=== PATIENT | female | born 1950 | race Hispanic/Latino ===

== ENCOUNTER 2018-09-07 16:42 | Emergency (ER) | payer SELFPAY ==
[2018-09-07] MEDS ORDERED: Lidocaine 1% w/Epinephrine 1:100K 20 ML VIAL ONE (17:55)
[2018-09-07] MEDS ORDERED: HYDROcodone/Acetaminophen 10/325 mg Tablet ONE (18:23)
[2018-09-07 18:44] LABS: #Basophils 0.1 thou/uL (0.0-0.2); #Eosinphils 0.1 thou/uL (0.0-0.7); #Lymphocytes 2.8 thou/uL (1.20-3.40); #Monocytes 0.8 thou/uL (0.11-0.59); #Neutrophils 6.3 thou/uL (1.40-6.50); %Basophils 1.2 % (0.0-1.0); %Lymphocytes 27.4 % (21.0-51.0); %Monocytes 8.3 % (0.0-10.0); %Neutrophils 62.1 % (42.0-75.0); Hemoglobin 12.8 g/dL (12.0-16.0); Mean Corpuscular HGB CONC 31.2 g/dL (32.0-36.0); Mean Corpuscular Hemoglobin 27.1 pg (27.0-31.0); Mean Corpuscular Volume 86.8 fL (78.0-98.0); Mean Platelet Volume 11.4 fL (7.4-10.4); Platelet Count 145 thou/uL (130-400); RBC Distribution Width 12.2 % (11.5-14.5); Red Blood Cell (RBC) Count 4.74 mill/uL (4.20-5.40); White Blood Cell (WBC) Count 10.1 thou/uL (4.8-10.8)
--- NOTE | 2018-09-07 19:03 | CT ---
CT HEAD WITHOUT CONTRAST: Technique: Multiple axial tomograms were obtained through the head without IV enhancement. Indications: Fall with head injury. FINDINGS: There is a large scalp hematoma over the left frontal bone. No evidence of underlying skull fracture. Sinuses and mastoids are clear. The ventricles have normal size and position. There is mild cortical atrophy. 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 There is no evidence of intracranial hemorrhage. No evidence of mass or edema. No evidence of acute i nfarct. When compared to a prior head CT from 01-22-17, the right occipital lobe infarct has occurred since th at study. There are ischemic changes seen in the right periventricular white matter which were noted previously and appear stable. Ischemic changes in the right basal ganglia are also stable. IMPRESSION: Scalp hematoma over the left frontal bone. No acute intracranial hemorrhage or injury. There are manager heavy equipment sofía changes as described. POS: [facility]
[2018-09-07] MEDS ORDERED: Bacitracin Zinc 1 Packet ONE (19:08)
[2018-09-07 19:09] LABS: ALT (SGPT) 8 U/L (8-55); AST (SGOT) 15 U/L (5-34); Albumin 4.2 g/dL (3.4-4.8); Alkaline Phosphatase 99 U/L (40-150); Anion Gap 16 mmol/L (10-20); BUN (Urea Nitrogen) 24 mg/dL (9.8-20.1); Bilirubin, Total 0.3 mg/dL (0.2-1.2); Calc. Creatinine Clearance 0 mL/min (70-130); Calcium 9.7 mg/dL (7.8-10.44); Carbon Dioxide 23 mmol/L (23-31); Chloride 101 mmol/L (98-107); Estimated GFR-MDRD 60; Globulin 3.9 g/dL (2.4-3.5); Glucose 184 mg/dL (80-115); Potassium 4.5 mmol/L (3.5-5.1); Protein, Total 8.1 g/dL (6.0-8.3); Sodium 135 mmol/L (136-145); Valproic Acid (Depakene) 79.1 ug/mL (50.0-100.0)
== END 2018-09-07 19:40 | disposition home or self-care (01) ==
LOC: ERS 16:42
DX: S06.9X9A Unspecified intracranial injury with loss of consciousness of unspecified duration, initial encounter (principal); S01.112A Laceration without foreign body of left eyelid and periocular area, initial encounter; G40.909 Epilepsy, unspecified, not intractable, without status epilepticus; E11.9 Type 2 diabetes mellitus without complications; W19.XXXA Unspecified fall, initial encounter
CPT/HCPCS: 12011; 36415; 70450; 80053; 80164; 82140; 84146; 85025; J2001

== ENCOUNTER 2020-01-10 12:09 | Inpatient (IN) | payer OTHER, SELFPAY ==
[~2020-01-10 12:09] MED LIST: Iopamidol-370 76% 500 ML 1 ML ONE
[2020-01-10] MEDS ORDERED: Morphine 2 MG/ML SYRINGE ONE (12:43)
[2020-01-10] MEDS ORDERED: Ondansetron PF 4 MG/2 ML Vial ONE (12:43)
--- NOTE | 2020-01-10 13:27 | RAD ---
EXAM: Single view of the chest HISTORY: Hypoglycemia and weakness COMPARISON: 11/28/2013 FINDINGS: Single view of the chest shows a normal sized cardiomediastinal silhouette. There is no uriel dence of consolidation, mass, or pleural effusion. Degenerative changes are seen in the spine. IMPRESSION: No evidence of acute cardiopulmonary disease
[2020-01-10 13:28] LABS: Hemoglobin 12.2 g/dL (12.0-16.0); Mean Corpuscular HGB CONC 32.8 g/dL (32.0-36.0); Mean Corpuscular Hemoglobin 28.2 pg (27.0-31.0); Mean Corpuscular Volume 85.7 fL (78.0-98.0); Mean Platelet Volume 11.4 fL (7.4-10.4); Platelet Count 145 thou/uL (130-400); Red Blood Cell (RBC) Count 4.33 mill/uL (4.20-5.40); White Blood Cell (WBC) Count 20.6 thou/uL (4.8-10.8)
[2020-01-10 13:48] LABS: ALT (SGPT) 8 U/L (8-55); AST (SGOT) 16 U/L (5-34); Albumin 4.2 g/dL (3.4-4.8); Alkaline Phosphatase 93 U/L (40-110); Anion Gap 15 mmol/L (10-20); BUN (Urea Nitrogen) 29 mg/dL (9.8-20.1); Band 16 % (5-11); Bilirubin, Total 0.4 mg/dL (0.2-1.2); Calc. Creatinine Clearance 0 mL/min (70-130); Calcium 9.6 mg/dL (7.8-10.44); Carbon Dioxide 22 mmol/L (23-31); Chloride 102 mmol/L (98-107); Estimated GFR-MDRD 53; Globulin 3.8 g/dL (2.4-3.5); Glucose 190 mg/dL (80-115); Lipase 9 U/L (8-78); Lymphocytes 5 % (21-51); MDiff Complete? YES; Monocytes 2 % (0-10); Myelocyte 1 % (0-0); Neutrophil 76 % (42-75); Platelet Morphology Comment Appears Adequate; RBC Morphology Normal; Sodium 135 mmol/L (136-145); Vacuoles SLIGHT
[2020-01-10 14:12] LABS: CKMB 5.7 ng/mL (0-6.6)
[2020-01-10] MEDS ORDERED: Vancomycin HCl 1.25 GM in Sodium Chloride 0.9% 250 ML 250 ML IVPB SCH (15:00)
--- NOTE | 2020-01-10 15:08 | CT ---
CT ABDOMEN AND PELVIS WITH IV CONTRAST 01/10/2020 CLINICAL INFORMATION: Post fall. Weakness. Abdominal pain after fall. Recent exposure to Covid patient. COMPARISON: None. Technique: Multiple contiguous axial CT images are obtained through the abdomen and pelvis with IV contrast. Cor onal reformatted images are provided. FINDINGS: Lower Chest: Mild volume loss is present at each lung base. There is mild prominence of the jacobsen of the lower esophagus, but this may be secondary to contraction of the lower esophagus. No discrete mass is appreciated. Vessels: Vascular calcifications are seen in the abdominal aorta and in the iliac arteries. Abdomen: Portal vein:Patent Gallbladder: Within normal limits for CT imaging. Liver: Calcified granuloma is present in the right hepatic lobe. Liver otherwise has a normal CT appe arance. Spleen: within normal limits. Pancreas: within normal limits. Adrenals: within normal limits. Kidneys: Subcentimeter low-density focus is seen in the inferior pole right kidney. Kidneys otherwise demonstrate a normal CT appearance bilaterally. Bowel: Normal caliber. Appendix: The appendix is visualized and normal in caliber. Peritoneum: No ascites or free air; no fluid collection. Mesentery and Retroperitoneum: No enlarged mesenteric or retroperitoneal lymph nodes. Abdominal Wall: Mild stranding is seen in the adipose layer lower abdomen/upper pelvis with could be related to scarring or possibly secondary to recent injections. Pelvis: Reproductive Organs: Calcifications are seen in the uterus likely due to vascular type calcifications . Pelvis within normal limits. Bladder: within normal limits. Bones: There is a mild wedge-shaped compression fracture of the T9 vertebral body and to a much lesse r extent T11 vertebral body suggesting mild compression fractures of indeterminate age. Degenerative changes are seen in the spine. IMPRESSION: 1. Indeterminate age compression fractures involving the T9 and T11 vertebral bodies. 2. No acute findings are seen in the abdomen or pelvis. 3. Vascular calcifications.
[2020-01-10] MEDS ORDERED: cefTRIAXone\\ROCEPHIN 2 GM VIAL ONE (15:26)
[2020-01-10] MEDS ORDERED: Cefepime 2 GM VIAL ONE (15:28)
[2020-01-10 15:51] LABS: Bacteria/HPF None Seen HPF (None Seen); Bilirubin Negative (Negative); Blood, Urine Trace (Negative); Clarity Clear (Clear); Glucose, Urine (Dipstick) >=1000 mg/dL (Negative); Leukocyte Negative Leu/uL (Negative); Nitrite Negative (Negative); Protein, Urine (Dipstick) Negative (Neg-Trace); RBC/HPF 0-3 HPF (0-3); Squamous Epithelial 0-3 HPF (0-3); Urobilinogen Normal mg/dL (Less than 2); WBC/HPF 0-3 HPF (0-3)
[2020-01-10 16:51] LABS: Lactic Acid 2.3 mmol/L (0.5-2.2)
[2020-01-10 19:04] LABS: Troponin I 0.018 ng/mL (< 0.028)
[2020-01-10] MEDS ORDERED: Dextrose 50% Abboject 50 ML SYRINGE SLOW IVP PRN (21:02)
[2020-01-10] MEDS ORDERED: Acetaminophen 325 MG TAB PO PRN (21:02)
[2020-01-10] MEDS ORDERED: Acetaminophen 650 MG Suppository PR PRN (21:02)
[2020-01-10] MEDS ORDERED: Ondansetron ODT 4 MG TAB PO PRN (21:02)
[2020-01-10] MEDS ORDERED: Dextrose 5% in Water 1,000 ML IV PRN (21:02)
[2020-01-10] MEDS ORDERED: HYDROcodone/Acetaminophen 5/325 mg Tablet PO PRN ×2 (21:02)
--- NOTE | 2020-01-10 21:30 | PDOC.HHP ---
Hospitalist HPI - History of Present Illness generalize weakness History of Present Illness: Case of an 69y/o female with pmhx of dm htn and epilepsy who comes to hospital after family members found her on the floor sweating and shaking. patient refers that for the last couple of days she has been having generalize weakness , general malaise, headache chills and some cough which is not productive. family members refers that they took patient to pcp who saw her and sent her to hospital. at the ED patient was found on sepsis on unknown source and hospitalist was called for further management and evaluation. patient denies dysuria diarrha vomiting Hospitalist ROS - Review of Systems All other systems reviewed; all pertinent +/- noted in HPI/Subj Hospitalist History - Past Medical History Source: patient, family Cardiac: reports: HTN Endocrine: reports: Diabetes Other Medical History: epilsy - Family History Family History: reports: diabetes mellitus - Social History Smoking Status: Never smoker Alcohol: reports: None Drugs: reports: none Living Situation: With Family Activity level: independent ambulation - Exam General Appearance: NAD, awake alert Eye: PERRL, anicteric sclera ENT: normocephalic atraumatic, no oropharyngeal lesions Neck: supple, symmetric, no JVD, no thyromegaly Heart: RRR, no murmur, no gallops Respiratory: CTAB, no wheezes, no rales Gastrointestinal: soft, non-tender, non-distended, normal bowel sounds Extremities: no cyanosis, no clubbing, no edema Skin: normal turgor, no lesions, no rashes Neurological: cranial nerve grossly intact, normal sensation to touch, no focal deficits, no new deficit Musculoskeletal: normal tone, normal strength, no muscle wasting Psychiatric: normal affect, normal behavior, A&O x 3 Hospitalist Results - Labs Result Diagrams: 01/10/20 22:23 01/10/20 13:15 Lab results: WBC 20.6 thou/uL (4.8-10.8) H 01/10/20 13:15 Hgb 12.2 g/dL (12.0-16.0) 01/10/20 13:15 Hct 37.2 % (36.0-47.0) 01/10/20 13:15 MCV 85.7 fL (78.0-98.0) 01/10/20 13:15 Plt Count 145 thou/uL (130-400) 01/10/20 13:15 Band Neuts % (Manual) 16 % (5-11) H 01/10/20 13:15 Sodium 135 mmol/L (136-145) L 01/10/20 13:15 Potassium 4.0 mmol/L (3.5-5.1) 01/10/20 13:15 Chloride 102 mmol/L (98-107) 01/10/20 13:15 Carbon Dioxide 22 mmol/L (23-31) L 01/10/20 13:15 BUN 29 mg/dL (9.8-20.1) H 01/10/20 13:15 Creatinine 1.04 mg/dL (0.6-1.1) 01/10/20 13:15 Glucose 190 mg/dL (80-115) H 01/10/20 13:15 Lactic Acid 2.3 mmol/L (0.5-2.2) H 01/10/20 16:20 Calcium 9.6 mg/dL (7.8-10.44) 01/10/20 13:15 Total Bilirubin 0.4 mg/dL (0.2-1.2) 01/10/20 13:15 AST 16 U/L (5-34) 01/10/20 13:15 ALT 8 U/L (8-55) 01/10/20 13:15 Alkaline Phosphatase 93 U/L (40-110) 01/10/20 13:15 CK-MB (CK-2) 5.7 ng/mL (0-6.6) 01/10/20 13:15 Troponin I 0.018 ng/mL (< 0.028) 01/10/20 18:33 Serum Total Protein 8.0 g/dL (6.0-8.3) 01/10/20 13:15 Albumin 4.2 g/dL (3.4-4.8) 01/10/20 13:15 Lipase 9 U/L (8-78) 01/10/20 13:15 Urine Ketones Negative mg/dL (Negative) 01/10/20 15:34 Urine Blood Trace (Negative) A 01/10/20 15:34 Urine Nitrite Negative (Negative) 01/10/20 15:34 Ur Leukocyte Esterase Negative Sherrie/uL (Negative) 06/29/20 15:34 Urine RBC 0-3 HPF (0-3) 01/10/20 15:34 Urine WBC 0-3 HPF (0-3) 01/10/20 15:34 Ur Squamous Epith Cells 0-3 HPF (0-3) 01/10/20 15:34 Urine Bacteria None Seen HPF (None Seen) 01/10/20 15:34 - Radiology Interpretation Chest x-ray Additional Comment: no effusion consolidations or infiltrates CT scan - abdomen Additional Comment: no acute pathology Hospitalist H&P A/P - Problem (1) Sepsis Code(s): A41.9 - SEPSIS, UNSPECIFIED ORGANISM Status: Acute (2) Hypertension Code(s): I10 - ESSENTIAL (PRIMARY) HYPERTENSION Status: Acute (3) Diabetes Code(s): E11.9 - TYPE 2 DIABETES MELLITUS WITHOUT COMPLICATIONS Status: Acute (4) Seizure, epileptic Code(s): G40.909 - EPILEPSY, UNSP, NOT INTRACTABLE, WITHOUT STATUS EPILEPTICUS Status: Acute (5) COVID-19 Code(s): U07.1 - COVID-19 Status: Acute - Plan Plan: 69y/o fem w the stated pmhx who was found on the floor shaking and sweating by family members, went to pcp who sent her here, dx w sepsis un unknow origen covid r/o - sepsis bundles done, decreasing LA now at normal values. cultures taken abx were started - f/u blood culture - cefepime and vanc - continue home meds for chronic conditions - acc checks and ss -dvt prophylaxis - covid r/o tested at the ED - contact and dropplet precautions
[2020-01-10 21:58] LABS: Troponin I 0.048 ng/mL (< 0.028)
[2020-01-10] MEDS ORDERED: Cefepime 2 GM in Sodium Chloride 0.9% 100 ML IVPB SCH (22:00)
[2020-01-10 22:37] LABS: Hemoglobin 10.9 g/dL (12.0-16.0); Mean Corpuscular HGB CONC 32.4 g/dL (32.0-36.0); Mean Corpuscular Volume 86.3 fL (78.0-98.0); Mean Platelet Volume 11.7 fL (7.4-10.4); Platelet Count 134 thou/uL (130-400); RBC Distribution Width 12.3 % (11.5-14.5); White Blood Cell (WBC) Count 23.5 thou/uL (4.8-10.8)
[2020-01-10 22:49] LABS: Band 23 % (5-11); Eosinophils 1 % (0-10); Lymphocytes 17 % (21-51); MDiff Complete? YES; Monocytes 1 % (0-10); Neutrophil 58 % (42-75); Platelet Morphology Comment Appears Adequate
[2020-01-11] MEDS: Sodium Chloride 0.9% 1,000 ML IV SCH ×2 (01:37→19:05)
[2020-01-11] MEDS ORDERED: Divalproex Sodium 250 MG (DR) TAB PO SCH (02:30)
[2020-01-11 05:12] LABS: Band 19 % (5-11); Hemoglobin 10.1 g/dL (12.0-16.0); Lymphocytes 23 % (21-51); MDiff Complete? YES; Mean Corpuscular HGB CONC 32.2 g/dL (32.0-36.0); Mean Corpuscular Hemoglobin 27.9 pg (27.0-31.0); Mean Corpuscular Volume 86.7 fL (78.0-98.0); Mean Platelet Volume 11.8 fL (7.4-10.4); Metamyelocyte 1 % (0-0); Monocytes 7 % (0-10); Neutrophil 50 % (42-75); Platelet Count 124 thou/uL (130-400); Platelet Morphology Comment Appears Decreased; RBC Distribution Width 12.2 % (11.5-14.5); Red Blood Cell (RBC) Count 3.61 mill/uL (4.20-5.40); White Blood Cell (WBC) Count 17.1 thou/uL (4.8-10.8)
[2020-01-11 05:32] LABS: ALT (SGPT) 7 U/L (8-55); AST (SGOT) 13 U/L (5-34); Albumin 3.2 g/dL (3.4-4.8); Alkaline Phosphatase 69 U/L (40-110); Anion Gap 13 mmol/L (10-20); BUN (Urea Nitrogen) 27 mg/dL (9.8-20.1); Bilirubin, Total 0.4 mg/dL (0.2-1.2); Calc. Creatinine Clearance 42 mL/min (70-130); Calcium 8.5 mg/dL (7.8-10.44); Carbon Dioxide 22 mmol/L (23-31); Chloride 105 mmol/L (98-107); Estimated GFR-MDRD 52; Globulin 2.7 g/dL (2.4-3.5); Glucose 218 mg/dL (80-115); Potassium 4.6 mmol/L (3.5-5.1); Protein, Total 5.9 g/dL (6.0-8.3); Sodium 135 mmol/L (136-145)
[2020-01-11] MEDS: Enoxaparin Sodium 40 MG/0.4 ML SYRINGE SC SCH (08:58)
[2020-01-11] MEDS: Divalproex Sodium 250 MG (DR) TAB PO SCH ×3 (08:58→20:43)
[2020-01-11] MEDS: Cefepime 2 GM in Sodium Chloride 0.9% 100 ML IVPB SCH ×2 (08:59→18:25)
[2020-01-11] MEDS: Vancomycin 1 GM in Premix Bag 1 BAG IVPB SCH ×2 (09:00→23:07)
[2020-01-11] MEDS ORDERED: Valproate Sodium 250 mg/5 ml UD Cup PO SCH (09:00)
[2020-01-11 12:26] LABS: SARS-CoV-2 MS2 Positive; SARS-CoV-2 N Gene Negative; SARS-CoV-2 S Gene Negative; SARS-CoV-2 orf1ab Negative
[2020-01-11] MEDS: HumaLOG 300 UNITS/3 ML VIAL SC PRN (12:49)
--- NOTE | 2020-01-11 14:29 | PDOC.HOSPP ---
- Subjective Encounter Date: 01/11/20 Subjective: Patient says she feels well. She has no complaints. Discussed her situation with her through director behavioral health. Patient repeated at least 5 times that she felt completely well. - Objective Vital Signs & Weight: Vital Signs (12 hours) Temp Pulse Resp BP BP Pulse Ox 01/11/20 11:35 98.2 F 88 18 138/67 98 01/11/20 09:45 97 01/11/20 09:30 98.4 F 96 18 168/71 H 97 01/11/20 03:00 99.1 F 93 16 131/63 95 Weight Weight 114 lb 4.8 oz I&O: 01/10/20 01/11/20 01/12/20 06:59 06:59 06:59 Intake Total 633 Output Total 250 Balance 383 Result Diagrams: 01/11/20 04:30 01/11/20 04:30 Additional Labs: Accuchecks 01/11/20 00:53 POC Glucose 168 H Hospitalist ROS - Medication Medications: Active Medications Generic Name Dose Route Start Last Admin Trade Name Freq PRN Reason Stop Dose Admin Acetaminophen 650 mg 01/10/20 21:02 01/11/20 08:58 Tylenol PO 650 mg Q4H PRN Administration Headache/Fever/Mild Pain (1-3) Divalproex Sodium 250 mg 01/11/20 09:00 01/11/20 08:58 Depakote PO 250 mg TID SHAKA Administration Enoxaparin Sodium 40 mg 01/11/20 09:00 01/11/20 08:58 Lovenox SC 40 mg 0900 SHAKA Administration Sodium Chloride 1,000 mls @ 75 mls/hr 01/10/20 21:15 01/11/20 01:37 Normal Saline 0.9% IV 1,000 mls .[id number] SHAKA Administration Vancomycin HCl 1 gm/ Device 200 mls @ 200 mls/hr 01/11/20 09:00 01/11/20 09: 00 IVPB 200 mls Q12HR SHAKA Administration Cefepime HCl 2 gm/ Sodium 100 mls @ 200 mls/hr 01/11/20 10:00 01/11/20 08:59 Chloride IVPB 100 mls 0200,1000,1800 SHAKA Administration Insulin Human Lispro 0 units 01/10/20 21:02 01/11/20 12:49 Humalog SC 8 unit .MODERATE SLIDING SC PRN Administration Moderate Correctional Scale Ondansetron HCl 4 mg 01/10/20 21:02 01/11/20 08:59 Zofran Odt PO 4 mg Q6H PRN Administration Nausea/Vomiting Sodium Chloride 10 ml 01/11/20 09:00 01/11/20 09:00 Flush - Normal Saline IVF 10 ml Q12HR SHAKA Administration - Exam General Appearance: NAD, awake alert Heart: RRR, no murmur, no gallops, no rubs, normal peripheral pulses Respiratory: CTAB, no wheezes, no rales, no ronchi, normal chest expansion, no tachypnea, normal percussion Gastrointestinal: soft, non-tender, non-distended, normal bowel sounds, no palpable masses, no hepatomegaly, no splenomegaly, no bruit Extremities: no cyanosis, no clubbing, no edema Skin: normal turgor, no lesions, no rashes Musculoskeletal: normal tone, normal strength, no muscle wasting Psychiatric: normal affect, normal behavior, A&O x 3 Hosp A/P (1) Hypertension Code(s): I10 - ESSENTIAL (PRIMARY) HYPERTENSION Status: Acute (2) Sepsis Code(s): A41.9 - SEPSIS, UNSPECIFIED ORGANISM Status: Acute (3) Diabetes Code(s): E11.9 - TYPE 2 DIABETES MELLITUS WITHOUT COMPLICATIONS Status: Acute (4) Seizure, epileptic Code(s): G40.909 - EPILEPSY, UNSP, NOT INTRACTABLE, WITHOUT STATUS EPILEPTICUS Status: Acute - Plan Sepsis: Patient presented with significant leukocytosis and lactic acidosis. Her white count is improved somewhat today. We have had no success finding a specific source of infection to this point. The patient feels completely normal and remains afebrile. We will continue with empiric antibiotics of bank and cefepime until we have full 48 hours of negative cultures. Seizure: Unclear if the patient was simply having some Rigor's or if she actually had a true seizure yesterday. Continuing seizure precautions. Continue Depakote. Diabetes mellitus: Advance to a diabetic diet. Continue sliding scale insulin. hypertension: Continue with losartan starting tomorrow as the blood pressure appears to be stable.
[2020-01-11] MEDS ORDERED: Insulin Glargine 40 UNITS in Pre-Filled Syringe 1 EACH SC SCH (21:00)
[2020-01-11] MEDS ORDERED: Prevnar 13-Val Conj/PF 0.5 ML SYRINGE IM ONE (21:00)
[2020-01-12] MEDS: Sodium Chloride 0.9% 1,000 ML IV SCH (02:42)
[2020-01-12] MEDS: Cefepime 2 GM in Sodium Chloride 0.9% 100 ML IVPB SCH ×2 (02:42→08:33)
[2020-01-12 04:47] LABS: #Eosinphils 0.1 thou/uL (0.0-0.7); #Lymphocytes 3.8 thou/uL (1.20-3.40); #Monocytes 0.8 thou/uL (0.11-0.59); #Neutrophils 6.6 thou/uL (1.40-6.50); %Basophils 0.4 % (0.0-1.0); %Eosinophils 0.7 % (0.0-10.0); %Lymphocytes 33.2 % (21.0-51.0); %Monocytes 7.3 % (0.0-10.0); %Neutrophils 58.4 % (42.0-75.0); Hemoglobin 10.6 g/dL (12.0-16.0); Mean Corpuscular Hemoglobin 28.7 pg (27.0-31.0); Mean Corpuscular Volume 87.2 fL (78.0-98.0); Mean Platelet Volume 11.8 fL (7.4-10.4); Platelet Count 129 thou/uL (130-400); RBC Distribution Width 12.1 % (11.5-14.5); White Blood Cell (WBC) Count 11.3 thou/uL (4.8-10.8)
[2020-01-12 05:09] LABS: Anion Gap 10 mmol/L (10-20); BUN (Urea Nitrogen) 18 mg/dL (9.8-20.1); Calc. Creatinine Clearance 41 mL/min (70-130); Calcium 8.4 mg/dL (7.8-10.44); Carbon Dioxide 24 mmol/L (23-31); Chloride 107 mmol/L (98-107); Estimated GFR-MDRD 51; Glucose 212 mg/dL (80-115); Potassium 4.4 mmol/L (3.5-5.1); Sodium 137 mmol/L (136-145)
[2020-01-12] MEDS: HumaLOG 300 UNITS/3 ML VIAL SC PRN (06:31)
[2020-01-12] MEDS: Vancomycin 1 GM in Premix Bag 1 BAG IVPB SCH (08:32)
[2020-01-12] MEDS: Enoxaparin Sodium 40 MG/0.4 ML SYRINGE SC SCH (08:32)
[2020-01-12] MEDS: Divalproex Sodium 250 MG (DR) TAB PO SCH (08:33)
[2020-01-12 12:34] VITALS: BP 173/77; TEMP 96.9
--- NOTE | 2020-01-13 11:59 | DIS ---
DATE OF ADMISSION: 01/10/2020 DATE OF DISCHARGE: 01/12/2020 DISCHARGE DIAGNOSES: 1. Likely seizure activity with postictal state. 2. Possible sepsis. 3. Diabetes mellitus. 4. Hypertension. HISTORY OF PRESENT ILLNESS: The patient is a 69-year-old female, who was essentially found down at home. She has a history of seizure disorder and her situation being found was unclear initially and was concerned it was related to hypoglycemic events. She had some emesis and was complaining of some abdominal pain. The family did not report any injuries related to the fall. The patient had a CT abdomen and pelvis, which showed indeterminate age compression fractures involving T9, T11, some vascular calcifications, but no other acute findings. The patient did not have any symptoms referable to these fractures to indicate that they were new. She had a chest x-ray that was unremarkable. She had urinalysis, which was also unremarkable except for some glucosuria. She did have a significantly elevated white blood cell count at 28,600 and she had a slightly elevated lactic acid. HOSPITAL COURSE: The patient was admitted to the hospital. She received insulin to cover her hyperglycemia. Subsequently, had an episode of hypoglycemia with a blood glucose of 35, which responded to more conservative measures. She had chaves cultures obtained, all of which remain negative. She remained on broad spectrum, empiric antibiotics. The patient remained afebrile. Her vital signs were stable throughout her stay. She felt completely well and had no symptoms. Subsequently after three days of negative cultures, stable vital signs and asymptomatic patient, she was felt to be stable for discharge to home. She did have a negative COVID test as well. PHYSICAL EXAMINATION: VITAL SIGNS: On the day of discharge, temperature was 96.9, pulse 89, respirations 15, O2 saturation 100% on room air, BP ranged from 144/65 to 173/77. GENERAL: She was awake and alert, pleasant and cooperative. HEART: Regular rate and rhythm. LUNGS: Clear. ABDOMEN: Benign. EXTREMITIES: No edema. DISPOSITION: The patient is discharged home. ACTIVITY: Activity level as tolerated. DIET: She will be on a diabetic diet. DISCHARGE MEDICATIONS: She will be on: 1. Losartan 25 mg daily. 2. Depakene 250 mg p.o. t.i.d. 3. Levemir 40 units subcu at bedtime. FOLLOWUP: She is to follow up with her primary care provider at [facility] within 7 days. She can return to the hospital at anytime should she have the need to do so. Of note, the patient was not continued on any antibiotics as there was no specific evidence of infection and her white count normalized during her hospitalization. TIME SPENT: Time spent in discharge activities greater than 30 minutes. Job ID: [id number] [id number]
== END 2020-01-12 14:35 | disposition home or self-care (01) | DRG 872 ==
LOC: ERS 12:09 → ERHOLD 18:12 → OBSVTOIN 21:02 → 2SW 01-11 00:45 → 2NO 01-11 20:14
PROVIDERS: ADMIT Family Medicine; ATTEND Family Medicine
DX: A41.9 Sepsis, unspecified organism (principal); E87.2 Acidosis; Z20.828 Contact with and (suspected) exposure to other viral communicable diseases; G40.909 Epilepsy, unspecified, not intractable, without status epilepticus; I10 Essential (primary) hypertension; E11.9 Type 2 diabetes mellitus without complications; Z79.4 Long term (current) use of insulin; Z79.899 Other long term (current) drug therapy
CPT/HCPCS: 36415; 36416; 71045; 74177; 80048; 80053; 81003; 81015; 82010; 82553; 83605; 83690; 84145; 84484; 85007; 85025; 85027; 87040; 87086; 87635; 93005; 96361; 96365; 96366; 96367; 96375; J0692; J0696; J1650; J1815; J2270; J2405; J3370; J3490; J7050; Q0162; Q9967; U0003

== ENCOUNTER 2021-11-24 14:27 | Inpatient (IN) | payer MEDICAID, SELFPAY ==
[~2021-11-24 14:27] MED LIST changes: +Iopamidol 370 76% 100 ML VIAL ONE; -Iopamidol-370 76% 500 ML 1 ML ONE
[2021-11-24 15:11] LABS: #Eosinphils 0.1 thou/uL (0.0-0.7); #Lymphocytes 1.7 thou/uL (1.20-3.40); #Monocytes 0.7 thou/uL (0.11-0.59); #Neutrophils 6.5 thou/uL (1.40-6.50); %Basophils 0.2 % (0.0-1.0); %Eosinophils 1.4 % (0.0-10.0); %Monocytes 7.8 % (0.0-10.0); %Neutrophils 71.6 % (42.0-75.0); Hemoglobin 11.8 g/dL (12.0-16.0); Mean Corpuscular HGB CONC 33.2 g/dL (32.0-36.0); Mean Corpuscular Hemoglobin 27.9 pg (27.0-31.0); Mean Corpuscular Volume 84.2 fL (78.0-98.0); Mean Platelet Volume 10.7 fL (7.4-10.4); Platelet Count 176 thou/uL (130-400); RBC Distribution Width 12.4 % (11.5-14.5); Red Blood Cell (RBC) Count 4.23 mill/uL (4.20-5.40); White Blood Cell (WBC) Count 9.1 thou/uL (4.8-10.8)
[2021-11-24] MEDS ORDERED: Morphine 4 MG/ML VIAL ONE (15:29)
[2021-11-24] MEDS ORDERED: Ondansetron PF 4 MG/2 ML Vial ONE (15:29)
[2021-11-24 15:42] LABS: ALT (SGPT) Less than 7 U/L (8-55); AST (SGOT) 16 U/L (5-34); Albumin 4.2 g/dL (3.4-4.8); Alkaline Phosphatase 83 U/L (40-110); Anion Gap 16 mmol/L (10-20); BUN (Urea Nitrogen) 22 mg/dL (9.8-20.1); Bilirubin, Total 0.4 mg/dL (0.2-1.2); Calc. Creatinine Clearance 0 mL/min (70-130); Calcium 9.3 mg/dL (7.8-10.44); Carbon Dioxide 22 mmol/L (23-31); Chloride 90 mmol/L (98-107); Globulin 3.6 g/dL (2.4-3.5); Glucose 218 mg/dL (80-115); Lipase 20 U/L (8-78); Potassium 4.7 mmol/L (3.5-5.1); Protein, Total 7.8 g/dL (5.8-8.1); Sodium 123 mmol/L (136-145)
[2021-11-24 17:18] LABS: Bacteria/HPF 2+ HPF (None Seen); Bilirubin Negative (Negative); Blood, Urine 2+ (Negative); Clarity Extra Turbid (Clear); Glucose, Urine (Dipstick) >=1000 mg/dL (Negative); Ketone, Urine Negative (Negative); Leukocyte 500 Leu/uL (Negative); Nitrite Negative (Negative); Protein, Urine (Dipstick) 20 mg/dL (Neg-Trace); Specific Gravity, Urine 1.013 (1.002-1.036); Squamous Epithelial 21-50 HPF (0-3); Urobilinogen Normal mg/dL (Less than 2); WBC/HPF Greater than 50 HPF (0-3)
[2021-11-24] MEDS ORDERED: cefTRIAXone\\ROCEPHIN 2 GM VIAL ONE (18:06)
[2021-11-24 19:27] LABS: Troponin I Less than 0.010 ng/mL (< 0.028)
[2021-11-24] MEDS ORDERED: HumaLOG 300 UNITS/3 ML VIAL SC PRN (21:42)
[2021-11-24] MEDS ORDERED: Dextrose 5% in Water 1,000 ML IV PRN (21:42)
[2021-11-24] MEDS ORDERED: Dextrose 50% Abboject 50 ML SYRINGE SLOW IVP PRN (21:42)
[2021-11-24] MEDS: Ondansetron PF 4 MG/2 ML Vial IVP PRN (21:44)
[2021-11-24] MEDS: Gabapentin 300 MG CAP PO SCH ×3 (21:56→22:44)
[2021-11-24 22:31] LABS: Anion Gap 16 mmol/L (10-20); BUN (Urea Nitrogen) 20 mg/dL (9.8-20.1); Calc. Creatinine Clearance 40 mL/min (70-130); Calcium 9.3 mg/dL (7.8-10.44); Carbon Dioxide 24 mmol/L (23-31); Chloride 91 mmol/L (98-107); Glucose 249 mg/dL (80-115); Potassium 4.2 mmol/L (3.5-5.1); Sodium 127 mmol/L (136-145)
[2021-11-24 22:36] LABS: Troponin I Less than 0.010 ng/mL (< 0.028)
[2021-11-24 22:45] LABS: Magnesium 1.8 mg/dL (1.6-2.6)
[2021-11-24] MEDS: levETIRAcetam 500 MG TAB PO SCH (23:00)
[2021-11-25] MEDS ORDERED: Valproic Acid 250 MG CAP PO SCH ×2 (00:45→09:00)
[2021-11-25 05:26] LABS: #Eosinphils 0.1 thou/uL (0.0-0.7); #Lymphocytes 2.4 thou/uL (1.20-3.40); #Monocytes 0.9 thou/uL (0.11-0.59); #Neutrophils 5.4 thou/uL (1.40-6.50); %Basophils 0.2 % (0.0-1.0); %Eosinophils 0.7 % (0.0-10.0); %Lymphocytes 27.3 % (21.0-51.0); %Monocytes 9.9 % (0.0-10.0); %Neutrophils 61.9 % (42.0-75.0); Hemoglobin 11.1 g/dL (12.0-16.0); Mean Corpuscular Hemoglobin 29.2 pg (27.0-31.0); Mean Corpuscular Volume 85.8 fL (78.0-98.0); Mean Platelet Volume 11.5 fL (7.4-10.4); Platelet Count 145 thou/uL (130-400); RBC Distribution Width 12.6 % (11.5-14.5); Red Blood Cell (RBC) Count 3.78 mill/uL (4.20-5.40); White Blood Cell (WBC) Count 8.7 thou/uL (4.8-10.8)
[2021-11-25 05:46] LABS: Anion Gap 16 mmol/L (10-20); BUN (Urea Nitrogen) 25 mg/dL (9.8-20.1); Calc. Creatinine Clearance 32 mL/min (70-130); Carbon Dioxide 23 mmol/L (23-31); Chloride 92 mmol/L (98-107); Glucose 225 mg/dL (80-115); Magnesium 1.8 mg/dL (1.6-2.6); Potassium 4.6 mmol/L (3.5-5.1); Sodium 126 mmol/L (136-145)
[2021-11-25] MEDS: HumaLOG 300 UNITS/3 ML VIAL SC PRN ×3 (05:48→17:37)
[2021-11-25] MEDS: Ondansetron PF 4 MG/2 ML Vial IVP PRN (05:53)
[2021-11-25] MEDS: hydrALAZINE 20 MG/ML VIAL SLOW IVP PRN (05:53)
[2021-11-25] MEDS: Gabapentin 300 MG CAP PO SCH ×3 (09:36→21:07)
[2021-11-25] MEDS: Acetaminophen 325 MG TAB PO PRN (09:36)
[2021-11-25] MEDS: levETIRAcetam 500 MG TAB PO SCH ×2 (09:37→21:07)
[2021-11-25] MEDS: Heparin 5,000 UNITS/ML VIAL SC SCH ×3 (09:38→21:08)
[2021-11-25] MEDS ORDERED: Sodium Chloride 0.9% 1,000 ML IV SCH (10:15)
[2021-11-25 11:59] LABS: Anion Gap 16 mmol/L (10-20); BUN (Urea Nitrogen) 26 mg/dL (9.8-20.1); Calc. Creatinine Clearance 30 mL/min (70-130); Calcium 8.7 mg/dL (7.8-10.44); Carbon Dioxide 22 mmol/L (23-31); Chloride 92 mmol/L (98-107); Glucose 211 mg/dL (80-115); Potassium 4.5 mmol/L (3.5-5.1); Sodium 125 mmol/L (136-145)
[2021-11-25] MEDS: Ketorolac Tromethamine 30 MG/ML VIAL IVP PRN ×2 (12:50→21:27)
[2021-11-25] MEDS: Sodium Chloride 1 GM TAB PO SCH ×2 (16:11→21:07)
[2021-11-25 16:27] LABS: SARS-CoV-2 PCR by NAA Not Detected (NotDetected)
[2021-11-25] MEDS: cefTRIAXone\\ROCEPHIN 1 GM in Sodium Chloride 0.9% 100 ML IVPB SCH (17:37)
[2021-11-25 19:54] LABS: Anion Gap 14 mmol/L (10-20); BUN (Urea Nitrogen) 28 mg/dL (9.8-20.1); Calc. Creatinine Clearance 29 mL/min (70-130); Calcium 8.4 mg/dL (7.8-10.44); Carbon Dioxide 22 mmol/L (23-31); Chloride 96 mmol/L (98-107); Glucose 179 mg/dL (80-115); Potassium 4.1 mmol/L (3.5-5.1); Sodium 128 mmol/L (136-145)
[2021-11-25] MEDS: Polyethylene Glycol 3350 17 GM Packet PO PRN (21:32)
[2021-11-26] MEDS: Sodium Chloride 0.9% 1,000 ML IV SCH ×3 (00:48→17:18)
[2021-11-26 04:57] LABS: #Eosinphils 0.3 thou/uL (0.0-0.7); #Lymphocytes 2.1 thou/uL (1.20-3.40); #Monocytes 0.9 thou/uL (0.11-0.59); #Neutrophils 3.6 thou/uL (1.40-6.50); %Basophils 0.5 % (0.0-1.0); %Eosinophils 3.8 % (0.0-10.0); %Lymphocytes 30.5 % (21.0-51.0); %Monocytes 12.8 % (0.0-10.0); %Neutrophils 52.4 % (42.0-75.0); Hemoglobin 9.9 g/dL (12.0-16.0); Mean Corpuscular HGB CONC 33.3 g/dL (32.0-36.0); Mean Corpuscular Hemoglobin 28.8 pg (27.0-31.0); Mean Corpuscular Volume 86.4 fL (78.0-98.0); Mean Platelet Volume 10.8 fL (7.4-10.4); Platelet Count 147 thou/uL (130-400); RBC Distribution Width 12.6 % (11.5-14.5); Red Blood Cell (RBC) Count 3.44 mill/uL (4.20-5.40); White Blood Cell (WBC) Count 6.9 thou/uL (4.8-10.8)
[2021-11-26] MEDS: HumaLOG 300 UNITS/3 ML VIAL SC PRN ×2 (06:43→18:47)
[2021-11-26] MEDS: Ketorolac Tromethamine 30 MG/ML VIAL IVP PRN (06:43)
[2021-11-26 08:55] LABS: Albumin 3.2 g/dL (3.4-4.8); Anion Gap 14 mmol/L (10-20); BUN (Urea Nitrogen) 28 mg/dL (9.8-20.1); BUN/Creatinine Ratio 22.22; Calc. Creatinine Clearance 35 mL/min (70-130); Calcium 8.4 mg/dL (7.8-10.44); Carbon Dioxide 21 mmol/L (23-31); Chloride 100 mmol/L (98-107); Glucose 192 mg/dL (80-115); Phosphorus 3.2 mg/dL (2.3-4.7); Potassium 4.7 mmol/L (3.5-5.1); Sodium 130 mmol/L (136-145)
[2021-11-26] MEDS: levETIRAcetam 500 MG TAB PO SCH ×2 (10:46→20:34)
[2021-11-26] MEDS: Gabapentin 300 MG CAP PO SCH ×3 (10:46→20:34)
[2021-11-26] MEDS: Heparin 5,000 UNITS/ML VIAL SC SCH ×3 (10:46→20:34)
[2021-11-26] MEDS: Sodium Chloride 1 GM TAB PO SCH ×3 (10:46→20:34)
[2021-11-26 11:06] LABS: Creatinine, Urine 74.51 mg/dL (47-110)
[2021-11-26 14:49] VITALS: BMI 22.6
[2021-11-26] MEDS ORDERED: Bisacodyl 5 MG TAB PO PRN (17:03)
[2021-11-26] MEDS: cefTRIAXone\\ROCEPHIN 1 GM in Sodium Chloride 0.9% 100 ML IVPB SCH (17:12)
[2021-11-26] MEDS ORDERED: Bisacodyl 5 MG TAB PO SCH (17:15)
[2021-11-26 18:04] LABS: Anion Gap 14 mmol/L (10-20); BUN (Urea Nitrogen) 24 mg/dL (9.8-20.1); Calc. Creatinine Clearance 29 mL/min (70-130); Calcium 8.7 mg/dL (7.8-10.44); Carbon Dioxide 23 mmol/L (23-31); Chloride 102 mmol/L (98-107); Glucose 286 mg/dL (80-115); Potassium 4.8 mmol/L (3.5-5.1); Sodium 134 mmol/L (136-145)
[2021-11-26] MEDS: Acetaminophen 325 MG TAB PO PRN (20:33)
[2021-11-26] MEDS: Polyethylene Glycol 3350 17 GM Packet PO PRN (20:33)
[2021-11-26] MEDS: hydrALAZINE 20 MG/ML VIAL SLOW IVP PRN (21:58)
[2021-11-27] MEDS: Sodium Chloride 0.9% 1,000 ML IV SCH (04:11)
[2021-11-27 04:39] LABS: #Eosinphils 0.1 thou/uL (0.0-0.7); #Lymphocytes 2.2 thou/uL (1.20-3.40); #Monocytes 0.8 thou/uL (0.11-0.59); #Neutrophils 3.7 thou/uL (1.40-6.50); %Basophils 0.3 % (0.0-1.0); %Eosinophils 2.1 % (0.0-10.0); %Lymphocytes 32.3 % (21.0-51.0); %Monocytes 11.3 % (0.0-10.0); %Neutrophils 54.1 % (42.0-75.0); Hemoglobin 10.3 g/dL (12.0-16.0); Mean Corpuscular HGB CONC 32.9 g/dL (32.0-36.0); Mean Corpuscular Hemoglobin 28.7 pg (27.0-31.0); Mean Corpuscular Volume 87.4 fL (78.0-98.0); Mean Platelet Volume 10.3 fL (7.4-10.4); Platelet Count 164 thou/uL (130-400); RBC Distribution Width 12.7 % (11.5-14.5); White Blood Cell (WBC) Count 6.8 thou/uL (4.8-10.8)
[2021-11-27 05:10] LABS: Albumin 3.2 g/dL (3.4-4.8); Anion Gap 13 mmol/L (10-20); BUN (Urea Nitrogen) 23 mg/dL (9.8-20.1); BUN/Creatinine Ratio 19.33; Calc. Creatinine Clearance 38 mL/min (70-130); Calcium 8.4 mg/dL (7.8-10.44); Carbon Dioxide 22 mmol/L (23-31); Chloride 105 mmol/L (98-107); Glucose 246 mg/dL (80-115); Magnesium 1.9 mg/dL (1.6-2.6); Phosphorus 2.8 mg/dL (2.3-4.7); Potassium 4.8 mmol/L (3.5-5.1); Sodium 135 mmol/L (136-145)
[2021-11-27] MEDS: Acetaminophen 325 MG TAB PO PRN ×2 (06:36→15:38)
[2021-11-27] MEDS: HumaLOG 300 UNITS/3 ML VIAL SC PRN ×2 (06:36→18:58)
[2021-11-27] MEDS: levETIRAcetam 500 MG TAB PO SCH ×2 (08:47→20:45)
[2021-11-27] MEDS: Gabapentin 300 MG CAP PO SCH ×3 (08:47→20:44)
[2021-11-27] MEDS: Heparin 5,000 UNITS/ML VIAL SC SCH ×3 (08:47→20:39)
[2021-11-27] MEDS: cefTRIAXone\\ROCEPHIN 1 GM in Sodium Chloride 0.9% 100 ML IVPB SCH (14:40)
[2021-11-27] MEDS: hydrALAZINE 20 MG/ML VIAL SLOW IVP PRN (15:38)
[2021-11-27] MEDS: ALPRAZolam 0.25 MG TAB PO PRN (20:51)
[2021-11-28] MEDS: HumaLOG 300 UNITS/3 ML VIAL SC PRN ×3 (05:35→16:18)
[2021-11-28 09:34] LABS: Calcium 9.1 mg/dL (7.8-10.44); Chloride 103 mmol/L (98-107); Potassium 5.7 mmol/L (3.5-5.1); Sodium 133 mmol/L (136-145)
[2021-11-28 09:56] LABS: Glucose 155 mg/dL (80-115)
[2021-11-28 09:58] LABS: Carbon Dioxide 18 mmol/L (23-31)
[2021-11-28 10:00] LABS: Calc. Creatinine Clearance 40 mL/min (70-130)
[2021-11-28 10:01] LABS: BUN (Urea Nitrogen) 17 mg/dL (9.8-20.1)
[2021-11-28] MEDS: levETIRAcetam 500 MG TAB PO SCH ×2 (12:44→20:16)
[2021-11-28] MEDS: Gabapentin 300 MG CAP PO SCH ×3 (12:44→20:16)
[2021-11-28] MEDS: Empagliflozin 10 MG TAB PO SCH (12:44)
[2021-11-28] MEDS: hydrALAZINE 20 MG/ML VIAL SLOW IVP PRN (12:45)
[2021-11-28] MEDS: Heparin 5,000 UNITS/ML VIAL SC SCH ×3 (12:46→20:16)
[2021-11-28 13:14] LABS: Potassium 5.7 mmol/L (3.5-5.1)
[2021-11-28] MEDS: Polyethylene Glycol 3350 17 GM Packet PO PRN (13:15)
[2021-11-28] MEDS ORDERED: Amlodipine 10 MG TAB PO SCH (14:00)
[2021-11-28] MEDS ORDERED: Albuterol Sulfate 2.5 mg/3 ml Neb NEB SCH (15:30)
[2021-11-28] MEDS ORDERED: Dextrose 50% Abboject 50 ML SYRINGE SLOW IVP SCH (15:30)
[2021-11-28] MEDS ORDERED: Insulin Regular 300 UNITS/3 ML VIAL IVP SCH (15:30)
[2021-11-28] MEDS: Sodium Bicarbonate Tab 325 MG TAB PO SCH ×2 (16:05→20:16)
[2021-11-28] MEDS: ALPRAZolam 0.25 MG TAB PO PRN (20:16)
[2021-11-28 20:38] LABS: Potassium 4.1 mmol/L (3.5-5.1)
[2021-11-29] MEDS: Acetaminophen 325 MG TAB PO PRN (04:06)
[2021-11-29] MEDS ORDERED: Amlodipine 10 MG TAB PO SCH (09:00)
[2021-11-29 09:21] LABS: Albumin 3.5 g/dL (3.4-4.8); Anion Gap 14 mmol/L (10-20); BUN (Urea Nitrogen) 22 mg/dL (9.8-20.1); BUN/Creatinine Ratio 17.19; Calc. Creatinine Clearance 34 mL/min (70-130); Calcium 9.1 mg/dL (7.8-10.44); Carbon Dioxide 24 mmol/L (23-31); Chloride 101 mmol/L (98-107); Glucose 192 mg/dL (80-115); Potassium 4.4 mmol/L (3.5-5.1); Sodium 135 mmol/L (136-145)
[2021-11-29] MEDS: Gabapentin 300 MG CAP PO SCH ×2 (09:43→16:04)
[2021-11-29] MEDS: Empagliflozin 10 MG TAB PO SCH (09:44)
[2021-11-29] MEDS: Sodium Bicarbonate Tab 325 MG TAB PO SCH ×3 (09:44→16:04)
[2021-11-29] MEDS: levETIRAcetam 500 MG TAB PO SCH (09:46)
[2021-11-29] MEDS: Heparin 5,000 UNITS/ML VIAL SC SCH ×2 (09:55→16:05)
[2021-11-29] MEDS: HumaLOG 300 UNITS/3 ML VIAL SC PRN (13:27)
[2021-11-29 17:48] VITALS: BP 115/70; TEMP 98.6
== END 2021-11-29 17:38 | disposition home or self-care (01) | DRG 644 ==
LOC: ERS 14:27 → 2NO 18:31 → OBSVTOIN 11-25 08:06
PROVIDERS: ADMIT Internal Medicine; ATTEND Internal Medicine
DX: E22.2 Syndrome of inappropriate secretion of antidiuretic hormone (principal); N17.9 Acute kidney failure, unspecified; E87.2 Acidosis; Z20.822 Contact with and (suspected) exposure to COVID-19; I10 Essential (primary) hypertension; G40.909 Epilepsy, unspecified, not intractable, without status epilepticus; D64.9 Anemia, unspecified; F32.A Depression, unspecified; E86.0 Dehydration; I44.7 Left bundle-branch block, unspecified; E11.51 Type 2 diabetes mellitus with diabetic peripheral angiopathy without gangrene; G93.89 Other specified disorders of brain; K59.00 Constipation, unspecified; E11.65 Type 2 diabetes mellitus with hyperglycemia; E11.40 Type 2 diabetes mellitus with diabetic neuropathy, unspecified; Z79.4 Long term (current) use of insulin; Z79.899 Other long term (current) drug therapy
CPT/HCPCS: 36415; 36416; 70450; 72100; 74177; 80048; 80053; 80069; 80164; 80177; 81003; 81015; 82570; 83605; 83690; 83735; 83930; 83935; 84156; 84300; 84443; 84484; 85025; 85379; 87040; 87086; 93005; 93970; 95712; 95819; 95957; 96361; 96365; 96375; 96376; G0378; J0360; J0696; J1644; J1815; J1885; J2270; J2405; J3490; J7050; Q9967; U0003; U0005

== ENCOUNTER 2021-12-22 13:16 | Inpatient (IN) | payer MEDICAID, SELFPAY ==
[2021-12-22 13:43] LABS: Hemoglobin 10.5 g/dL (12.0-16.0); Mean Corpuscular HGB CONC 31.9 g/dL (32.0-36.0); Mean Corpuscular Hemoglobin 28.2 pg (27.0-31.0); Mean Corpuscular Volume 88.4 fL (78.0-98.0); Mean Platelet Volume 8.8 fL (7.4-10.4); Platelet Count 256 thou/uL (130-400); RBC Distribution Width 12.9 % (11.5-14.5); Red Blood Cell (RBC) Count 3.74 mill/uL (4.20-5.40); White Blood Cell (WBC) Count 20.4 thou/uL (4.8-10.8)
[2021-12-22 13:59] LABS: Band 19 % (5-11); Lymphocytes 9 % (21-51); MDiff Complete? YES; Monocytes 8 % (0-10); Neutrophil 64 % (42-75); Platelet Morphology Comment Appears Adequate; Polychromasia SLIGHT = 2-3 cells (100X) (0-2/hpf)
[2021-12-22 14:40] LABS: CKMB 1.9 ng/mL (0-6.6)
[2021-12-22] MEDS ORDERED: Azithromycin 500 MG VIAL ONE (15:11)
[2021-12-22] MEDS ORDERED: Aspirin Chewable 81 MG TAB ONE (15:11)
[2021-12-22] MEDS ORDERED: Acetaminophen 500 MG TAB ONE (15:11)
[2021-12-22] MEDS ORDERED: cefTRIAXone\\ROCEPHIN 2 GM VIAL ONE (15:11)
[2021-12-22 15:13] LABS: ALT (SGPT) 22 U/L (8-55); AST (SGOT) 27 U/L (5-34); Albumin 3.5 g/dL (3.4-4.8); Alkaline Phosphatase 66 U/L (40-110); Anion Gap 16 mmol/L (10-20); BUN (Urea Nitrogen) 23 mg/dL (9.8-20.1); Bilirubin, Total 0.3 mg/dL (0.2-1.2); Calc. Creatinine Clearance 0 mL/min (70-130); Carbon Dioxide 23 mmol/L (23-31); Chloride 96 mmol/L (98-107); Glucose 105 mg/dL (80-115); Potassium 4.7 mmol/L (3.5-5.1); Protein, Total 7.5 g/dL (5.8-8.1); Sodium 130 mmol/L (136-145)
[2021-12-22 15:28] LABS: Bilirubin Negative (Negative); Blood, Urine Trace (Negative); Clarity Turbid (Clear); Glucose, Urine (Dipstick) Greater than 1000 mg/dL (Negative); Ketone, Urine Negative (Negative); Leukocyte Negative Leu/uL (Negative); Nitrite Negative (Negative); Protein, Urine (Dipstick) 50 mg/dL (Neg-Trace); Specific Gravity, Urine 1.021 (1.002-1.036); Squamous Epithelial None Seen HPF (0-3); Urobilinogen Normal mg/dL (Less than 2); WBC/HPF 0-3 HPF (0-3); pH, Urine 5.5 (5.0-9.0)
[2021-12-22 15:29] LABS: Bacteria/HPF 1+ HPF (None Seen)
[2021-12-22 15:41] LABS: SARS-CoV-2 NAA Rapid Test Not Detected (NotDetected)
[2021-12-22] MEDS ORDERED: Senokot S 8.6-50 MG TAB PO PRN (15:56)
[2021-12-22] MEDS ORDERED: ALPRAZolam 0.5 MG TAB PO PRN (16:39)
[2021-12-22] MEDS ORDERED: Enoxaparin Sodium 60 MG/0.6 ML SYRINGE ONE (16:41)
[2021-12-22] MEDS ORDERED: Dextrose 5% in Water 1,000 ML IV PRN (17:21)
[2021-12-22] MEDS ORDERED: Dextrose 50% Abboject 50 ML SYRINGE SLOW IVP PRN (17:21)
[2021-12-22] MEDS: Sodium Chloride 0.9% 1,000 ML IV SCH (17:25)
[2021-12-22 18:39] LABS: Troponin I 0.716 ng/mL (< 0.028)
[2021-12-22] MEDS: Valproic Acid 250 MG CAP PO SCH (20:42)
[2021-12-22] MEDS: ALPRAZolam 0.25 MG TAB PO PRN (20:42)
[2021-12-22] MEDS: guaiFENesin ER 600 MG TAB PO SCH (20:42)
[2021-12-22] MEDS: levETIRAcetam 500 MG TAB PO SCH (20:42)
[2021-12-22 21:18] LABS: Critical Call Chem Troponin I 2NO..AI
[2021-12-22] MEDS: HumaLOG 300 UNITS/3 ML VIAL SC PRN (22:29)
[2021-12-23] MEDS: Sodium Chloride 0.9% 1,000 ML IV SCH (02:24)
[2021-12-23 05:19] LABS: #Lymphocytes 2.3 thou/uL (1.20-3.40); #Monocytes 1.5 thou/uL (0.11-0.59); %Basophils 0.1 % (0.0-1.0); %Eosinophils 0.1 % (0.0-10.0); %Lymphocytes 12.9 % (21.0-51.0); %Monocytes 8.4 % (0.0-10.0); %Neutrophils 78.5 % (42.0-75.0); Hemoglobin 8.9 g/dL (12.0-16.0); Mean Corpuscular HGB CONC 31.1 g/dL (32.0-36.0); Mean Corpuscular Hemoglobin 28.2 pg (27.0-31.0); Mean Corpuscular Volume 90.5 fL (78.0-98.0); Mean Platelet Volume 9.2 fL (7.4-10.4); Platelet Count 218 thou/uL (130-400); RBC Distribution Width 13.1 % (11.5-14.5); Red Blood Cell (RBC) Count 3.17 mill/uL (4.20-5.40); White Blood Cell (WBC) Count 17.8 thou/uL (4.8-10.8)
[2021-12-23 05:48] LABS: ALT (SGPT) 27 U/L (8-55); AST (SGOT) 43 U/L (5-34); Albumin 2.9 g/dL (3.4-4.8); Alkaline Phosphatase 66 U/L (40-110); Anion Gap 14 mmol/L (10-20); BUN (Urea Nitrogen) 28 mg/dL (9.8-20.1); Bilirubin, Total 0.2 mg/dL (0.2-1.2); Calc. Creatinine Clearance 37 mL/min (70-130); Calcium 8.3 mg/dL (7.8-10.44); Carbon Dioxide 24 mmol/L (23-31); Chloride 97 mmol/L (98-107); Globulin 3.5 g/dL (2.4-3.5); Glucose 346 mg/dL (80-115); Potassium 4.2 mmol/L (3.5-5.1); Protein, Total 6.4 g/dL (5.8-8.1); Sodium 131 mmol/L (136-145)
[2021-12-23] MEDS: HumaLOG 300 UNITS/3 ML VIAL SC PRN ×3 (06:28→21:35)
[2021-12-23] MEDS: Amlodipine 10 MG TAB PO SCH (09:40)
[2021-12-23] MEDS: Valproic Acid 250 MG CAP PO SCH ×3 (09:40→20:03)
[2021-12-23] MEDS: FLUoxetine HCl 20 MG CAP PO SCH (09:40)
[2021-12-23] MEDS: levETIRAcetam 500 MG TAB PO SCH ×2 (09:40→20:03)
[2021-12-23] MEDS: guaiFENesin ER 600 MG TAB PO SCH ×2 (09:40→20:04)
[2021-12-23] MEDS: Pantoprazole 40 MG VIAL IVP SCH (09:40)
[2021-12-23] MEDS: Enoxaparin Sodium 60 MG/0.6 ML SYRINGE SC SCH ×2 (09:40→20:03)
[2021-12-23] MEDS: ALPRAZolam 0.25 MG TAB PO PRN (10:00)
[2021-12-23] MEDS: cefTRIAXone\\ROCEPHIN 2 GM in Sodium Chloride 0.9% 100 ML IVPB SCH (15:29)
[2021-12-23] MEDS: Azithromycin 500 MG in Sodium Chloride 0.9% 250 ML 250 ML IVPB SCH (15:29)
[2021-12-23 17:11] LABS: Amphetamine Not Detected (NotDetected); Barbiturates Screen Not Detected (NotDetected); Benzodiazepine Screen Not Detected (NotDetected); Cocaine Metabolite Screen Not Detected (NotDetected); Methadone Not Detected (NotDetected); Methamphetamine Not Detected (NotDetected); Opiate Screen Not Detected (NotDetected); Oxycodone Screen Not Detected (NotDetected); Phencyclidine (PCP) Not Detected (NotDetected); THC/Cannabinoid Screen Not Detected (NotDetected); Tricyclic Screen Not Detected (NotDetected)
[2021-12-23] MEDS: Melatonin 3 MG TAB PO PRN (20:03)
[2021-12-23] MEDS: Insulin Glargine 30 UNITS/0.3 ML VIAL SC SCH (20:04)
[2021-12-23] MEDS ORDERED: Lantus 1000 UNITS/10 ML VIAL SC SCH (21:00)
[2021-12-24] MEDS: ALPRAZolam 0.25 MG TAB PO PRN ×2 (02:21→21:28)
[2021-12-24] MEDS ORDERED: Albuterol Sulfate 2.5 mg/3 ml Neb NEB SCH (02:30)
[2021-12-24] MEDS: Acetaminophen 325 MG TAB PO PRN ×3 (03:11→21:28)
[2021-12-24] MEDS ORDERED: Ziprasidone 20 MG VIAL IM SCH (03:30)
[2021-12-24] MEDS ORDERED: Sterile Water 10 ML VIAL FS PRN (03:45)
[2021-12-24] MEDS ORDERED: Sterile Water 20 ML VIAL FS PRN (03:45)
[2021-12-24] MEDS: HumaLOG 300 UNITS/3 ML VIAL SC PRN (05:31)
[2021-12-24] MEDS: Nitroglycerin 2% Ointment 1 INCH/1 GM Packet TOP SCH ×3 (05:32→21:30)
[2021-12-24 06:17] LABS: Anion Gap 11 mmol/L (10-20); BUN (Urea Nitrogen) 11 mg/dL (9.8-20.1); Calc. Creatinine Clearance 41 mL/min (70-130); Calcium 8.6 mg/dL (7.8-10.44); Carbon Dioxide 26 mmol/L (23-31); Chloride 106 mmol/L (98-107); Glucose 93 mg/dL (80-115); Potassium 3.8 mmol/L (3.5-5.1); Sodium 139 mmol/L (136-145)
[2021-12-24 06:18] LABS: Acetaminophen Less than 10.0 mcg/mL (10.0-30.0); Alcohol Less than 10 mg/dL (Less than 10); Salicylate Less than 8.0 mg/dL (15.0-30.0)
[2021-12-24 06:27] LABS: CKMB 1.1 ng/mL (0-6.6)
[2021-12-24 06:37] LABS: Band 9 % (5-11); Hemoglobin 8.5 g/dL (12.0-16.0); Lymphocytes 2 % (21-51); MDiff Complete? YES; Mean Corpuscular HGB CONC 31.6 g/dL (32.0-36.0); Mean Corpuscular Hemoglobin 28.5 pg (27.0-31.0); Mean Corpuscular Volume 90.3 fL (78.0-98.0); Mean Platelet Volume 9.7 fL (7.4-10.4); Monocytes 6 % (0-10); Neutrophil 83 % (42-75); Platelet Count 230 thou/uL (130-400); Platelet Morphology Comment Appears Adequate; RBC Distribution Width 13.1 % (11.5-14.5); RBC Morphology Normal; Red Blood Cell (RBC) Count 2.96 mill/uL (4.20-5.40)
[2021-12-24] MEDS: Amlodipine 10 MG TAB PO SCH (09:51)
[2021-12-24] MEDS: levETIRAcetam 500 MG TAB PO SCH ×2 (09:51→21:28)
[2021-12-24] MEDS: Valproic Acid 250 MG CAP PO SCH ×3 (09:51→21:29)
[2021-12-24] MEDS: FLUoxetine HCl 20 MG CAP PO SCH (09:51)
[2021-12-24] MEDS: guaiFENesin ER 600 MG TAB PO SCH ×2 (09:51→21:28)
[2021-12-24] MEDS: Enoxaparin Sodium 60 MG/0.6 ML SYRINGE SC SCH (09:52)
[2021-12-24] MEDS: Pantoprazole 40 MG VIAL IVP SCH (09:53)
[2021-12-24] MEDS: cefTRIAXone\\ROCEPHIN 2 GM in Sodium Chloride 0.9% 100 ML IVPB SCH (14:16)
[2021-12-24] MEDS: Azithromycin 500 MG in Sodium Chloride 0.9% 250 ML 250 ML IVPB SCH (17:01)
[2021-12-24] MEDS: Melatonin 3 MG TAB PO PRN (21:28)
[2021-12-24] MEDS: Insulin Glargine 30 UNITS/0.3 ML VIAL SC SCH (21:29)
[2021-12-25 02:19] LABS: Legionella Urinary Ag Negative (Negative); Strep pneumo Urine Ag NEGATIVE (NEGATIVE)
[2021-12-25 05:19] LABS: #Lymphocytes 1.4 thou/uL (1.20-3.40); #Monocytes 0.9 thou/uL (0.11-0.59); #Neutrophils 11.1 thou/uL (1.40-6.50); %Basophils 0.1 % (0.0-1.0); %Eosinophils 0.3 % (0.0-10.0); %Lymphocytes 10.6 % (21.0-51.0); %Monocytes 6.5 % (0.0-10.0); %Neutrophils 82.5 % (42.0-75.0); Hemoglobin 7.8 g/dL (12.0-16.0); Mean Corpuscular Hemoglobin 27.8 pg (27.0-31.0); Mean Corpuscular Volume 89.7 fL (78.0-98.0); Mean Platelet Volume 8.6 fL (7.4-10.4); Platelet Count 271 thou/uL (130-400); RBC Distribution Width 13.2 % (11.5-14.5); Red Blood Cell (RBC) Count 2.81 mill/uL (4.20-5.40); White Blood Cell (WBC) Count 13.5 thou/uL (4.8-10.8)
[2021-12-25] MEDS: Nitroglycerin 2% Ointment 1 INCH/1 GM Packet TOP SCH (05:37)
[2021-12-25 05:48] LABS: Anion Gap 14 mmol/L (10-20); BUN (Urea Nitrogen) 18 mg/dL (9.8-20.1); Calc. Creatinine Clearance 41 mL/min (70-130); Calcium 9.3 mg/dL (7.8-10.44); Carbon Dioxide 25 mmol/L (23-31); Chloride 99 mmol/L (98-107); Glucose 115 mg/dL (80-115); Potassium 4.3 mmol/L (3.5-5.1); Sodium 134 mmol/L (136-145)
[2021-12-25] MEDS: FLUoxetine HCl 20 MG CAP PO SCH ×2 (09:17→10:12)
[2021-12-25] MEDS: levETIRAcetam 500 MG TAB PO SCH ×2 (09:17→10:11)
[2021-12-25] MEDS: Amlodipine 10 MG TAB PO SCH ×2 (09:17→10:12)
[2021-12-25] MEDS: guaiFENesin ER 600 MG TAB PO SCH ×2 (09:17→10:11)
[2021-12-25] MEDS: Enoxaparin Sodium 40 MG/0.4 ML SYRINGE SC SCH ×2 (09:17→09:55)
[2021-12-25] MEDS: Lorazepam 2 MG/ML VIAL SLOW IVP PRN (09:30)
[2021-12-25] MEDS ORDERED: Piperacillin/Tazobactam 3.375 GM in Sodium Chloride 0.9% 100 ML IVPB SCH ×2 (10:00→11:00)
[2021-12-25] MEDS: Valproic Acid 250 MG CAP PO SCH (10:12)
[2021-12-25 10:36] LABS: Hemoglobin 8.1 g/dL (12.0-16.0); Mean Corpuscular HGB CONC 31.2 g/dL (32.0-36.0); Mean Corpuscular Hemoglobin 27.9 pg (27.0-31.0); Mean Corpuscular Volume 89.5 fL (78.0-98.0); Mean Platelet Volume 8.5 fL (7.4-10.4); Platelet Count 268 thou/uL (130-400); RBC Distribution Width 13.1 % (11.5-14.5); Red Blood Cell (RBC) Count 2.92 mill/uL (4.20-5.40)
[2021-12-25 10:46] LABS: Troponin I 0.153 ng/mL (< 0.028)
[2021-12-25 10:47] LABS: ALT (SGPT) 55 U/L (8-55); AST (SGOT) 68 U/L (5-34); Albumin 3.1 g/dL (3.4-4.8); Alkaline Phosphatase 98 U/L (40-110); Anion Gap 12 mmol/L (10-20); BUN (Urea Nitrogen) 20 mg/dL (9.8-20.1); Bilirubin, Total 0.2 mg/dL (0.2-1.2); Calc. Creatinine Clearance 41 mL/min (70-130); Calcium 9.4 mg/dL (7.8-10.44); Carbon Dioxide 27 mmol/L (23-31); Chloride 99 mmol/L (98-107); Glucose 127 mg/dL (80-115); Potassium 4.2 mmol/L (3.5-5.1); Protein, Total 7.1 g/dL (5.8-8.1); Sodium 134 mmol/L (136-145)
[2021-12-25] MEDS ORDERED: Nitroglycerin 0.4 MG TAB (25 Tab Bottle) SL PRN (11:20)
[2021-12-25 11:23] LABS: Band 17 % (5-11); Hypochromia SLIGHT = 6-15 cells (100X) (0-5/hpf); Lymphocytes 12 % (21-51); MDiff Complete? YES; Monocytes 6 % (0-10); Neutrophil 65 % (42-75); Platelet Morphology Comment Appears Adequate; Polychromasia SLIGHT = 2-3 cells (100X) (0-2/hpf)
[2021-12-25 11:25] LABS: Actual Bicarbonate (HCO3v) 25 mEq/L (22-28); Base Excess 0.9 mEq/L (-2.0 to +3.0); Calcium, Ionized (venous) 1.14 mmol/L (1.16-1.32); Chloride (VBG) 98 mmol/L (98-106); Hemoglobin (Hb) 8.9 g/dL (11.7-16.1); Potassium (VBG) 4.13 mmol/L (3.70-5.30); Sodium 132.3 mmol/L (133-146); pH (venous) 7.43 (7.32-7.43)
[2021-12-25] MEDS ORDERED: Amiodarone 150 MG, Admixture Fee 1 EACH in Dextrose 5% in Water 100 ML IVPB SCH (11:30)
[2021-12-25] MEDS ORDERED: Amiodarone 450 MG, Admixture Fee 1 EACH in Dextrose 5% in Water 250 ML IVPB SCH (11:30)
[2021-12-25] MEDS ORDERED: Aspirin 300 MG Suppository PR SCH (11:30)
[2021-12-25 11:47] LABS: ALV-art Gradient 527.075 mmHg (0-20); Actual Bicarbonate (HCO3a) 27.8 mEq/L (22-28); Base Excess (BEa) 4.1 mEq/L (-2.0 to +3.0); CO2 Tension 37.7 mmHg (35.0-45.0); Calcium, Ionized (arterial) 1.18 mmol/L (1.12-1.30); Carboxyhemoglobin (COHb) 0.4 gm% (0.0-3.0); Hemoglobin (Hb) 8.3 g/dL (12.0-16.0); O2 Tension (PaO2), arterial 138.8 mmHg (> 80.0); Potassium - ABG Lab 4.07 mmol/L (3.70-5.30); Puncture Site LBA; pH, Arterial 7.49 (7.35-7.45)
[2021-12-25] MEDS ORDERED: Vancomycin HCl 750 MG in Sodium Chloride 0.9% 250 ML 250 ML IVPB SCH (12:00)
[2021-12-25] MEDS ORDERED: Diltiazem 125 MG in Sodium Chloride 0.9% 100 ML IVPB SCH (12:00)
[2021-12-25] MEDS ORDERED: Digoxin 0.5 MG/2 ML AMP SLOW IVP SCH (12:00)
[2021-12-25] MEDS: Digoxin 0.5 MG/2 ML AMP SLOW IVP SCH ×2 (13:51→17:34)
[2021-12-25] MEDS: Nystatin 500,000 UNITS/5 ML UDCUP SSW SCH ×3 (13:52→21:53)
[2021-12-25] MEDS: Piperacillin/Tazobactam 3.375 GM in Sodium Chloride 0.9% 100 ML IVPB SCH (19:37)
[2021-12-25] MEDS ORDERED: Vancomycin 1 GM in Premix Bag 1 BAG IVPB SCH (21:00)
[2021-12-25] MEDS ORDERED: Famotidine 20 MG TAB PER TUBE SCH (21:00)
[2021-12-25] MEDS: Haloperidol Lactate 5 MG/ML VIAL SLOW IVP PRN (21:54)
[2021-12-26] MEDS: Piperacillin/Tazobactam 3.375 GM in Sodium Chloride 0.9% 100 ML IVPB SCH ×3 (03:08→20:06)
[2021-12-26 04:12] LABS: Hemoglobin A1c 8.9 % (4.0-6.0)
[2021-12-26 04:43] LABS: Digoxin Less than 0.15 ng/mL (0.8-2.0)
[2021-12-26 04:47] LABS: ALT (SGPT) 37 U/L (8-55); AST (SGOT) 30 U/L (5-34); Alkaline Phosphatase 91 U/L (40-110); Anion Gap 14 mmol/L (10-20); BUN (Urea Nitrogen) 13 mg/dL (9.8-20.1); Bilirubin, Total 0.3 mg/dL (0.2-1.2); Calc. Creatinine Clearance 57 mL/min (70-130); Calcium 9.2 mg/dL (7.8-10.44); Carbon Dioxide 27 mmol/L (23-31); Cardiac Risk 3.7 (Less than 4.5); Chloride 99 mmol/L (98-107); Cholesterol 134 mg/dl (< 200 Desired); Glucose 75 mg/dL (80-115); HDL Cholesterol 36 mg/dL (>60 Neg Risk); Magnesium 1.9 mg/dL (1.6-2.6); Sodium 136 mmol/L (136-145)
[2021-12-26 05:04] LABS: LDL Cholesterol, Calculated 81 mg/dL; Triglycerides 91 mg/dL (Less than 150)
[2021-12-26] MEDS: Enoxaparin Sodium 40 MG/0.4 ML SYRINGE SC SCH (07:23)
[2021-12-26] MEDS: Nystatin 500,000 UNITS/5 ML UDCUP SSW SCH ×4 (07:23→20:07)
[2021-12-26] MEDS: Aspirin 300 MG Suppository PR SCH (07:23)
[2021-12-26] MEDS ORDERED: Digoxin 0.5 MG/2 ML AMP SLOW IVP SCH (09:00)
[2021-12-26 10:16] LABS: Hemoglobin 9.5 g/dL (12.0-16.0); Mean Corpuscular HGB CONC 31.3 g/dL (32.0-36.0); Mean Corpuscular Hemoglobin 27.9 pg (27.0-31.0); Mean Corpuscular Volume 89.2 fL (78.0-98.0); Mean Platelet Volume 8.3 fL (7.4-10.4); Platelet Count 287 thou/uL (130-400); RBC Distribution Width 13.2 % (11.5-14.5); White Blood Cell (WBC) Count 12.6 thou/uL (4.8-10.8)
[2021-12-26 11:13] LABS: Band 25 % (5-11); Hypochromia SLIGHT = 6-15 cells (100X) (0-5/hpf); Lymphocytes 10 % (21-51); MDiff Complete? YES; Monocytes 6 % (0-10); Neutrophil 59 % (42-75); Platelet Morphology Comment Appears Adequate
[2021-12-26] MEDS: Haloperidol Lactate 5 MG/ML VIAL SLOW IVP PRN (20:07)
[2021-12-26] MEDS: Famotidine 20 MG TAB PER TUBE SCH (20:07)
[2021-12-27 03:52] LABS: #Eosinphils 0.1 thou/uL (0.0-0.7); #Monocytes 1.1 thou/uL (0.11-0.59); #Neutrophils 8.5 thou/uL (1.40-6.50); %Basophils 0.1 % (0.0-1.0); %Eosinophils 0.7 % (0.0-10.0); %Lymphocytes 9.1 % (21.0-51.0); %Monocytes 10.3 % (0.0-10.0); %Neutrophils 79.9 % (42.0-75.0); Hemoglobin 9.1 g/dL (12.0-16.0); Mean Corpuscular HGB CONC 32.3 g/dL (32.0-36.0); Mean Corpuscular Hemoglobin 29.1 pg (27.0-31.0); Mean Platelet Volume 7.8 fL (7.4-10.4); Platelet Count 283 thou/uL (130-400); Red Blood Cell (RBC) Count 3.14 mill/uL (4.20-5.40); White Blood Cell (WBC) Count 10.6 thou/uL (4.8-10.8)
[2021-12-27] MEDS: Piperacillin/Tazobactam 3.375 GM in Sodium Chloride 0.9% 100 ML IVPB SCH ×3 (03:57→19:34)
[2021-12-27 04:19] LABS: ALT (SGPT) 65 U/L (8-55); AST (SGOT) 100 U/L (5-34); Albumin 2.8 g/dL (3.4-4.8); Alkaline Phosphatase 101 U/L (40-110); Anion Gap 13 mmol/L (10-20); BUN (Urea Nitrogen) 17 mg/dL (9.8-20.1); Bilirubin, Total 0.2 mg/dL (0.2-1.2); Calc. Creatinine Clearance 49 mL/min (70-130); Calcium 8.8 mg/dL (7.8-10.44); Carbon Dioxide 28 mmol/L (23-31); Chloride 97 mmol/L (98-107); Globulin 3.9 g/dL (2.4-3.5); Glucose 292 mg/dL (80-115); Potassium 4.6 mmol/L (3.5-5.1); Protein, Total 6.7 g/dL (5.8-8.1); Sodium 133 mmol/L (136-145)
[2021-12-27 04:22] LABS: Troponin I 0.177 ng/mL (< 0.028)
[2021-12-27] MEDS: HumaLOG 300 UNITS/3 ML VIAL SC PRN ×3 (05:46→20:09)
[2021-12-27] MEDS: Nystatin 500,000 UNITS/5 ML UDCUP SSW SCH ×4 (07:39→20:09)
[2021-12-27] MEDS: Enoxaparin Sodium 40 MG/0.4 ML SYRINGE SC SCH (07:39)
[2021-12-27] MEDS: Aspirin 300 MG Suppository PR SCH (07:40)
[2021-12-27] MEDS ORDERED: Digoxin 0.25 MG TAB PO SCH (09:00)
[2021-12-27 14:26] LABS: Bacteria/HPF None Seen HPF (None Seen); Bilirubin Negative (Negative); Blood, Urine Negative (Negative); Clarity Clear (Clear); Glucose, Urine (Dipstick) Greater than 1000 mg/dL (Negative); Ketone, Urine Trace mg/dL (Negative); Leukocyte Negative Leu/uL (Negative); Nitrite Negative (Negative); Protein, Urine (Dipstick) 20 mg/dL (Neg-Trace); RBC/HPF 0-3 HPF (0-3); Squamous Epithelial 0-3 HPF (0-3); Urobilinogen Normal mg/dL (Less than 2); WBC/HPF 0-3 HPF (0-3); pH, Urine 5.5 (5.0-9.0)
[2021-12-27 14:39] LABS: Urine Culture Reflex No No
[2021-12-27] MEDS: Haloperidol Lactate 5 MG/ML VIAL SLOW IVP PRN (19:34)
[2021-12-27] MEDS: Acetaminophen 325 MG TAB PO PRN (19:47)
[2021-12-27] MEDS: levETIRAcetam 500 MG TAB PO SCH (20:09)
[2021-12-27] MEDS: Famotidine 20 MG TAB PER TUBE SCH (20:09)
[2021-12-27] MEDS: Valproic Acid 250 MG CAP PO SCH (20:22)
[2021-12-28] MEDS: Piperacillin/Tazobactam 3.375 GM in Sodium Chloride 0.9% 100 ML IVPB SCH ×3 (03:05→18:16)
[2021-12-28 03:56] LABS: #Eosinphils 0.1 thou/uL (0.0-0.7); #Lymphocytes 1.3 thou/uL (1.20-3.40); #Monocytes 1.2 thou/uL (0.11-0.59); #Neutrophils 8.4 thou/uL (1.40-6.50); %Basophils 0.3 % (0.0-1.0); %Eosinophils 0.5 % (0.0-10.0); %Monocytes 10.9 % (0.0-10.0); %Neutrophils 76.3 % (42.0-75.0); Hemoglobin 8.5 g/dL (12.0-16.0); Mean Corpuscular HGB CONC 30.6 g/dL (32.0-36.0); Mean Corpuscular Hemoglobin 27.8 pg (27.0-31.0); Mean Corpuscular Volume 90.8 fL (78.0-98.0); Platelet Count 292 thou/uL (130-400); RBC Distribution Width 13.2 % (11.5-14.5); Red Blood Cell (RBC) Count 3.05 mill/uL (4.20-5.40)
[2021-12-28 04:29] LABS: ALT (SGPT) 57 U/L (8-55); AST (SGOT) 51 U/L (5-34); Albumin 2.8 g/dL (3.4-4.8); Alkaline Phosphatase 124 U/L (40-110); Anion Gap 12 mmol/L (10-20); BUN (Urea Nitrogen) 30 mg/dL (9.8-20.1); Bilirubin, Total 0.2 mg/dL (0.2-1.2); Calc. Creatinine Clearance 39 mL/min (70-130); Calcium 8.9 mg/dL (7.8-10.44); Carbon Dioxide 31 mmol/L (23-31); Chloride 98 mmol/L (98-107); Globulin 4.2 g/dL (2.4-3.5); Glucose 368 mg/dL (80-115); Sodium 136 mmol/L (136-145)
[2021-12-28] MEDS: HumaLOG 300 UNITS/3 ML VIAL SC PRN ×4 (06:24→21:17)
[2021-12-28] MEDS: Enoxaparin Sodium 40 MG/0.4 ML SYRINGE SC SCH (07:29)
[2021-12-28] MEDS: FLUoxetine HCl 20 MG CAP PO SCH (07:29)
[2021-12-28] MEDS: Digoxin 0.125 MG TAB PO SCH (07:29)
[2021-12-28] MEDS: levETIRAcetam 500 MG TAB PO SCH ×2 (07:30→21:14)
[2021-12-28] MEDS: Aspirin 300 MG Suppository PR SCH (07:30)
[2021-12-28] MEDS: Nystatin 500,000 UNITS/5 ML UDCUP SSW SCH ×4 (07:30→21:16)
[2021-12-28] MEDS: Valproic Acid 250 MG CAP PO SCH ×3 (07:30→21:14)
[2021-12-28 15:27] VITALS: BMI 26.4
[2021-12-28] MEDS: Acetaminophen 325 MG TAB PO PRN ×2 (16:52→21:15)
[2021-12-28] MEDS: Famotidine 20 MG TAB PER TUBE SCH (21:14)
[2021-12-29] MEDS: Piperacillin/Tazobactam 3.375 GM in Sodium Chloride 0.9% 100 ML IVPB SCH ×3 (02:45→18:43)
[2021-12-29] MEDS: HumaLOG 300 UNITS/3 ML VIAL SC PRN ×4 (06:04→21:39)
[2021-12-29 08:29] LABS: Hemoglobin 7.9 g/dL (12.0-16.0); Mean Corpuscular HGB CONC 31.8 g/dL (32.0-36.0); Mean Corpuscular Hemoglobin 28.8 pg (27.0-31.0); Mean Corpuscular Volume 90.5 fL (78.0-98.0); Platelet Count 254 thou/uL (130-400); RBC Distribution Width 13.3 % (11.5-14.5); Red Blood Cell (RBC) Count 2.76 mill/uL (4.20-5.40); White Blood Cell (WBC) Count 12.9 thou/uL (4.8-10.8)
[2021-12-29 08:50] LABS: Band 14 % (5-11); Hypochromia SLIGHT = 6-15 cells (100X) (0-5/hpf); Lymphocytes 14 % (21-51); MDiff Complete? YES; Metamyelocyte 2 % (0-0); Monocytes 10 % (0-10); Myelocyte 1 % (0-0); Neutrophil 55 % (42-75); Platelet Morphology Comment Appears Adequate; Polychromasia SLIGHT = 2-3 cells (100X) (0-2/hpf); Reactive Lymphocytes 4 % (0-10)
[2021-12-29] MEDS: FLUoxetine HCl 20 MG CAP PO SCH (09:03)
[2021-12-29] MEDS: Digoxin 0.125 MG TAB PO SCH (09:03)
[2021-12-29] MEDS: Nystatin 500,000 UNITS/5 ML UDCUP SSW SCH ×4 (09:03→19:52)
[2021-12-29] MEDS: levETIRAcetam 500 MG TAB PO SCH ×2 (09:03→19:35)
[2021-12-29] MEDS: Enoxaparin Sodium 40 MG/0.4 ML SYRINGE SC SCH (09:03)
[2021-12-29] MEDS: Aspirin 300 MG Suppository PR SCH (09:04)
[2021-12-29] MEDS: Valproic Acid 250 MG CAP PO SCH ×3 (09:04→19:35)
[2021-12-29 12:07] LABS: Actual Bicarbonate (HCO3a) 30.6 mEq/L (22-28); Base Excess (BEa) 6.2 mEq/L (-2.0 to +3.0); CO2 Tension 43.9 mmHg (35.0-45.0); Calcium, Ionized (arterial) 1.21 mmol/L (1.12-1.30); Carboxyhemoglobin (COHb) 0.3 gm% (0.0-3.0); Potassium - ABG Lab 5.05 mmol/L (3.70-5.30); pH, Arterial 7.46 (7.35-7.45)
[2021-12-29 12:08] LABS: ALV-art Gradient 171.725 mmHg (0-20); O2 Tension (PaO2), arterial 58.6 mmHg (> 80.0); Puncture Site RRA
[2021-12-29] MEDS ORDERED: Iopamidol 370 76% 100 ML VIAL ONE (13:34)
[2021-12-29] MEDS ORDERED: Furosemide 40 MG/4 ML VIAL SLOW IVP SCH (15:30)
[2021-12-29] MEDS: Famotidine 20 MG TAB PER TUBE SCH (19:35)
[2021-12-29] MEDS: Acetaminophen 325 MG TAB PO PRN (19:35)
[2021-12-30] MEDS: Piperacillin/Tazobactam 3.375 GM in Sodium Chloride 0.9% 100 ML IVPB SCH ×3 (02:04→18:32)
[2021-12-30] MEDS: HumaLOG 300 UNITS/3 ML VIAL SC PRN ×3 (05:29→17:18)
[2021-12-30 07:12] LABS: #Eosinphils 0.2 thou/uL (0.0-0.7); #Lymphocytes 1.7 thou/uL (1.20-3.40); #Monocytes 1.1 thou/uL (0.11-0.59); #Neutrophils 10.4 thou/uL (1.40-6.50); %Basophils 0.1 % (0.0-1.0); %Eosinophils 1.2 % (0.0-10.0); %Neutrophils 77.8 % (42.0-75.0); Hemoglobin 10.5 g/dL (12.0-16.0); Mean Corpuscular HGB CONC 31.9 g/dL (32.0-36.0); Mean Corpuscular Hemoglobin 29.1 pg (27.0-31.0); Mean Corpuscular Volume 91.3 fL (78.0-98.0); Mean Platelet Volume 8.8 fL (7.4-10.4); Platelet Count 317 thou/uL (130-400); RBC Distribution Width 13.3 % (11.5-14.5); White Blood Cell (WBC) Count 13.4 thou/uL (4.8-10.8)
[2021-12-30 07:33] LABS: Anion Gap 16 mmol/L (10-20); BUN (Urea Nitrogen) 31 mg/dL (9.8-20.1); Calc. Creatinine Clearance 36 mL/min (70-130); Calcium 9.7 mg/dL (7.8-10.44); Carbon Dioxide 30 mmol/L (23-31); Chloride 97 mmol/L (98-107); Glucose 315 mg/dL (80-115); Magnesium 2.3 mg/dL (1.6-2.6); Potassium 4.5 mmol/L (3.5-5.1); Sodium 138 mmol/L (136-145)
[2021-12-30] MEDS: Aspirin 300 MG Suppository PR SCH (08:55)
[2021-12-30] MEDS: Valproic Acid 250 MG CAP PO SCH ×3 (08:55→21:03)
[2021-12-30] MEDS: FLUoxetine HCl 20 MG CAP PO SCH (08:55)
[2021-12-30] MEDS: levETIRAcetam 500 MG TAB PO SCH ×2 (08:55→21:04)
[2021-12-30] MEDS: Digoxin 0.125 MG TAB PO SCH (08:56)
[2021-12-30] MEDS: Nystatin 500,000 UNITS/5 ML UDCUP SSW SCH ×4 (08:58→21:28)
[2021-12-30] MEDS: Enoxaparin Sodium 40 MG/0.4 ML SYRINGE SC SCH (08:58)
[2021-12-30] MEDS ORDERED: Furosemide 20 MG/2 ML VIAL SLOW IVP SCH (13:15)
[2021-12-30] MEDS: Acetaminophen 325 MG TAB PO PRN ×2 (17:17→21:05)
[2021-12-30] MEDS: Famotidine 20 MG TAB PER TUBE SCH (21:03)
[2021-12-30] MEDS: Lorazepam 2 MG/ML VIAL SLOW IVP PRN (21:22)
[2021-12-31] MEDS: Piperacillin/Tazobactam 3.375 GM in Sodium Chloride 0.9% 100 ML IVPB SCH ×3 (02:14→18:23)
[2021-12-31] MEDS: HumaLOG 300 UNITS/3 ML VIAL SC PRN ×4 (04:54→20:52)
[2021-12-31 06:06] LABS: #Eosinphils 0.3 thou/uL (0.0-0.7); #Lymphocytes 1.8 thou/uL (1.20-3.40); #Monocytes 0.8 thou/uL (0.11-0.59); #Neutrophils 9.3 thou/uL (1.40-6.50); %Basophils 0.1 % (0.0-1.0); %Eosinophils 2.5 % (0.0-10.0); %Lymphocytes 14.5 % (21.0-51.0); %Monocytes 6.6 % (0.0-10.0); %Neutrophils 76.3 % (42.0-75.0); Hemoglobin 10.4 g/dL (12.0-16.0); Mean Corpuscular HGB CONC 30.8 g/dL (32.0-36.0); Mean Corpuscular Hemoglobin 28.2 pg (27.0-31.0); Mean Corpuscular Volume 91.6 fL (78.0-98.0); Mean Platelet Volume 8.3 fL (7.4-10.4); Platelet Count 368 thou/uL (130-400); RBC Distribution Width 13.5 % (11.5-14.5); White Blood Cell (WBC) Count 12.2 thou/uL (4.8-10.8)
[2021-12-31 06:28] LABS: Anion Gap 14 mmol/L (10-20); BUN (Urea Nitrogen) 32 mg/dL (9.8-20.1); Calc. Creatinine Clearance 33 mL/min (70-130); Calcium 9.5 mg/dL (7.8-10.44); Carbon Dioxide 30 mmol/L (23-31); Chloride 94 mmol/L (98-107); Glucose 382 mg/dL (80-115); Magnesium 2.2 mg/dL (1.6-2.6); Sodium 133 mmol/L (136-145)
[2021-12-31] MEDS: Digoxin 0.125 MG TAB PO SCH (09:50)
[2021-12-31] MEDS: levETIRAcetam 500 MG TAB PO SCH (09:50)
[2021-12-31] MEDS: FLUoxetine HCl 20 MG CAP PO SCH (09:50)
[2021-12-31] MEDS: Aspirin 300 MG Suppository PR SCH (09:50)
[2021-12-31] MEDS: Enoxaparin Sodium 40 MG/0.4 ML SYRINGE SC SCH (09:50)
[2021-12-31] MEDS: Nystatin 500,000 UNITS/5 ML UDCUP SSW SCH ×4 (09:51→20:28)
[2021-12-31] MEDS ORDERED: Labetalol HCl 100 MG/20 ML VIAL ONE (10:14)
[2021-12-31] MEDS: Acetaminophen 325 MG TAB PO PRN (10:18)
[2021-12-31] MEDS: Valproic Acid 250 MG CAP PO SCH ×3 (10:19→20:43)
[2021-12-31] MEDS: Lorazepam 2 MG/ML VIAL SLOW IVP PRN ×2 (15:33→21:30)
[2021-12-31] MEDS: Famotidine 20 MG TAB PER TUBE SCH (20:43)
[2021-12-31] MEDS: levETIRAcetam 500 mg/5 ml Oral Solution PO SCH (22:44)
[2022-01-01] MEDS: Piperacillin/Tazobactam 3.375 GM in Sodium Chloride 0.9% 100 ML IVPB SCH ×3 (03:04→19:01)
[2022-01-01] MEDS: HumaLOG 300 UNITS/3 ML VIAL SC PRN ×4 (06:03→21:12)
[2022-01-01 06:36] LABS: Anion Gap 13 mmol/L (10-20); BUN (Urea Nitrogen) 24 mg/dL (9.8-20.1); Calc. Creatinine Clearance 41 mL/min (70-130); Calcium 9.4 mg/dL (7.8-10.44); Carbon Dioxide 28 mmol/L (23-31); Chloride 93 mmol/L (98-107); Glucose 317 mg/dL (80-115); Potassium 5.5 mmol/L (3.5-5.1); Sodium 128 mmol/L (136-145)
[2022-01-01] MEDS: Enoxaparin Sodium 40 MG/0.4 ML SYRINGE SC SCH (10:12)
[2022-01-01] MEDS: Digoxin 0.125 MG TAB PO SCH (10:12)
[2022-01-01] MEDS: Aspirin 300 MG Suppository PR SCH (10:12)
[2022-01-01] MEDS: FLUoxetine HCl 20 MG CAP PO SCH (10:12)
[2022-01-01] MEDS: Valproic Acid 250 MG CAP PO SCH ×3 (10:13→20:58)
[2022-01-01] MEDS: levETIRAcetam 500 mg/5 ml Oral Solution PO SCH ×2 (10:21→20:57)
[2022-01-01] MEDS: Nystatin 500,000 UNITS/5 ML UDCUP SSW SCH ×4 (10:21→20:58)
[2022-01-01] MEDS ORDERED: Amlodipine 5 MG TAB PO SCH (16:00)
[2022-01-01] MEDS ORDERED: Furosemide 20 MG/2 ML VIAL SLOW IVP SCH (16:30)
[2022-01-01] MEDS: Famotidine 20 MG TAB PER TUBE SCH (20:58)
[2022-01-01] MEDS: Acetaminophen 325 MG TAB PO PRN (21:34)
[2022-01-02] MEDS: Piperacillin/Tazobactam 3.375 GM in Sodium Chloride 0.9% 100 ML IVPB SCH ×2 (03:20→11:18)
[2022-01-02] MEDS: HumaLOG 300 UNITS/3 ML VIAL SC PRN (06:18)
[2022-01-02 07:03] LABS: Anion Gap 16 mmol/L (10-20); BUN (Urea Nitrogen) 25 mg/dL (9.8-20.1); Calc. Creatinine Clearance 35 mL/min (70-130); Calcium 9.5 mg/dL (7.8-10.44); Carbon Dioxide 31 mmol/L (23-31); Chloride 92 mmol/L (98-107); Glucose 352 mg/dL (80-115); Potassium 4.7 mmol/L (3.5-5.1); Sodium 134 mmol/L (136-145)
[2022-01-02 08:14] VITALS: BP 140/54; TEMP 98.1
[2022-01-02] MEDS ORDERED: Amlodipine 5 MG TAB PO SCH (09:00)
[2022-01-02] MEDS: Enoxaparin Sodium 40 MG/0.4 ML SYRINGE SC SCH (10:06)
[2022-01-02] MEDS: Aspirin 300 MG Suppository PR SCH (10:07)
[2022-01-02] MEDS: FLUoxetine HCl 20 MG CAP PO SCH (10:07)
[2022-01-02] MEDS: Valproic Acid 250 MG CAP PO SCH (10:07)
[2022-01-02] MEDS: Digoxin 0.125 MG TAB PO SCH (10:07)
[2022-01-02] MEDS: Nystatin 500,000 UNITS/5 ML UDCUP SSW SCH ×2 (10:08→13:30)
[2022-01-02] MEDS: levETIRAcetam 500 mg/5 ml Oral Solution PO SCH (10:11)
== END 2022-01-02 15:24 | disposition hospice, home (50) | DRG 871 ==
LOC: ERS 13:16 → 2NO 15:40 → CCU 12-25 11:37 → IMCU/EMU 12-25 16:20 → T4-A 12-28 15:41
PROVIDERS: ADMIT Internal Medicine; ATTEND Internal Medicine
PROC: 3E03329 Introduction of Other Anti-infective into Peripheral Vein, Percutaneous Approach (ICD-10-PCS; 2021-12-22)
PROC: 0DH67UZ Insertion of Feeding Device into Stomach, Via Natural or Artificial Opening (ICD-10-PCS; 2021-12-25)
PROC: 30233N1 Transfusion of Nonautologous Red Blood Cells into Peripheral Vein, Percutaneous Approach (ICD-10-PCS; principal; 2021-12-29)
DX: A41.9 Sepsis, unspecified organism (principal); J69.0 Pneumonitis due to inhalation of food and vomit; I21.A1 Myocardial infarction type 2; J96.01 Acute respiratory failure with hypoxia; G93.41 Metabolic encephalopathy; J18.9 Pneumonia, unspecified organism; R45.851 Suicidal ideations; F03.91 Unspecified dementia, unspecified severity, with behavioral disturbance; I47.1 Supraventricular tachycardia; E87.1 Hypo-osmolality and hyponatremia; Z66 Do not resuscitate; Z20.822 Contact with and (suspected) exposure to COVID-19; Z51.5 Encounter for palliative care; G40.909 Epilepsy, unspecified, not intractable, without status epilepticus; I10 Essential (primary) hypertension; I44.7 Left bundle-branch block, unspecified; R77.8 Other specified abnormalities of plasma proteins; D64.9 Anemia, unspecified; F32.A Depression, unspecified; R62.7 Adult failure to thrive; E87.5 Hyperkalemia; R19.5 Other fecal abnormalities; R13.10 Dysphagia, unspecified; R33.9 Retention of urine, unspecified; E11.65 Type 2 diabetes mellitus with hyperglycemia; Z68.26 Body mass index [BMI] 26.0-26.9, adult; Z98.890 Other specified postprocedural states; Z78.1 Physical restraint status; Z78.9 Other specified health status; Z79.899 Other long term (current) drug therapy; Z79.4 Long term (current) use of insulin
CPT/HCPCS: 36415; 36416; 36430; 36600; 51701; 71045; 71046; 71275; 74018; 74230; 80048; 80053; 80061; 80162; 80164; 80177; 80306; 80307; 81001; 81003; 81015; 82274; 82553; 82805; 83036; 83605; 83735; 83880; 84145; 84484; 85025; 86850; 86900; 86901; 87040; 87077; 87086; 87149; 87449; 87899; 93005; 93010; 93306; 94640; 94760; 96365; 96372; 96375; C9113; J0456; J0696; J1160; J1630; J1650; J1815; J1940; J2060; J2543; J3486; J3490; J7050; J7611; J7620; J7999; P9016; Q9967; U0002; U0003; U0005